=== PATIENT | female | born 1990 | race Caucasian/White ===

== ENCOUNTER → 2019-04-07 | Outpatient (REF) | payer OTHER | LOC: M LAB REF 20:05 | PROVIDERS: ATTEND Physician Assistant | DX: R30.0 Dysuria (principal) ==

== ENCOUNTER → 2020-04-05 | Outpatient (REF) | payer OTHER | LOC: M LAB REF 14:55 | PROVIDERS: ATTEND Physician Assistant Medical | DX: Z12.4 Encounter for screening for malignant neoplasm of cervix (principal) | CPT/HCPCS: 87624; G0123 ==

== ENCOUNTER → 2020-08-17 | Outpatient (CLI) | payer OTHER | LOC: M LAB 09:44 | PROVIDERS: ATTEND Family Medicine | DX: N92.6 Irregular menstruation, unspecified (principal) ==